=== PATIENT | female | born 1995 | race Caucasian/White ===

== ENCOUNTER 2023-07-19 17:19 | Emergency (ER) | payer OTHER ==
[2023-07-19 17:26] VITALS: BP 134/76; PULSE 115; RESP 18; TEMP 100.3; BMI 19.2
[2023-07-19] MEDS ORDERED: ACETAMINOPHEN 325 MG TABLET (FP) ONE (17:37)
[2023-07-19] MEDS ORDERED: guaiFENesin/CODEINE 10 ML UNIT-DOSE CUPS ONE (17:37)
[2023-07-19] MEDS ORDERED: DEXAMETHASONE SOD PHOSPHATE 10 MG/1 ML VIAL ONE (17:38)
[2023-07-19] MEDS ORDERED: ALBUTEROL SO4 2.5/IPRATROPIUM 0.5 INH SOL 3 ML VIAL.NEB. NEB ONE (17:38)
[2023-07-19] MEDS: DEXAMETHASONE SOD PHOSPHATE 10 MG/1 ML VIAL PO ONE (17:45)
[2023-07-19] MEDS: ACETAMINOPHEN 325 MG TABLET (FP) PO ONE (17:45)
[2023-07-19] MEDS: guaiFENesin/CODEINE 10 ML UNIT-DOSE CUPS PO ONE (17:47)
[2023-07-19] MEDS: ALBUTEROL SO4 2.5/IPRATROPIUM 0.5 INH SOL 3 ML VIAL.NEB. NEB ONE (17:49)
== END 2023-07-19 18:35 | disposition home or self-care (01) ==
LOC: FER 17:19
PROC: 3E0F7GC Introduction of Other Therapeutic Substance into Respiratory Tract, Via Natural or Artificial Opening (ICD-10-PCS; principal; 2023-07-19)
DX: R50.9 Fever, unspecified (principal); R05.9 Cough, unspecified; R09.81 Nasal congestion; R07.89 Other chest pain; J02.9 Acute pharyngitis, unspecified; B34.9 Viral infection, unspecified; Z20.822 Contact with and (suspected) exposure to COVID-19
CPT/HCPCS: 0241U-QW; 99283-25; J1100

== ENCOUNTER 2024-09-13 18:40 | Emergency (ER) | payer OTHER ==
[2024-09-13 18:56] VITALS: BP 128/91; PULSE 95; RESP 16; TEMP 98.1; BMI 21.2
[2024-09-13] MEDS ORDERED: predniSONE 20 MG TABLET (UD) ONE ×2 (19:37→19:38)
[2024-09-13] MEDS: predniSONE 20 MG TABLET (UD) PO ONE (19:38)
[2024-09-13 23:39] LABS: HCV DIAGNOSTIC IN-HOUSE W/RFLX NON-REACTIVE (NONREACTIVE); HIV INTERPRETATION NEGATIVE (NEGATIVE)
== END 2024-09-13 19:41 | disposition home or self-care (01) ==
LOC: FER 18:40
DX: R21 Rash and other nonspecific skin eruption (principal); L29.9 Pruritus, unspecified
CPT/HCPCS: 36415; 86803; 87389; 99283-25